=== PATIENT | male | born 1990 | race Two or more races ===

== ENCOUNTER 2021-06-08 21:57 | Emergency (ER) | payer SELFPAY ==
[~2021-06-08] VITALS: Ht 180.3 cm; Wt 72.0 kg
[2021-06-08 22:02] VITALS: BP 148/79
[2021-06-08] MEDS ORDERED: LIDOCAINE HCL 1% 20ML VIAL (Pyxis) INJ INFIL ONE (22:30)
[2021-06-08] MEDS ORDERED: LIDOCAINE HCL 1% 10 MG/ML 10ML VIAL INJ ONE (22:30)
== END 2021-06-08 23:12 | disposition home or self-care (01) ==
LOC: ER 21:57
DX: S91.311A Laceration without foreign body, right foot, initial encounter (principal); W26.8XXA Contact with other sharp object(s), not elsewhere classified, initial encounter; Y93.89 Activity, other specified; Y92.89 Other specified places as the place of occurrence of the external cause; Y99.8 Other external cause status
CPT/HCPCS: 12001; 99282; J3490